=== PATIENT | female | born 1990 | race Caucasian/White ===

== ENCOUNTER 2019-06-10 05:35 | Inpatient (IN) ==
[2019-06-10] MEDS ORDERED: ONDANSETRON 4 MG/2 ML VIAL IV PRN ×2 (05:46→08:33)
[2019-06-10] MEDS ORDERED: CITRIC ACID/SODIUM CITRATE 30 ML UDCUP PO ONE (05:47)
[2019-06-10] MEDS ORDERED: FAMOTIDINE 20 MG/2 ML VIAL IV ONE (05:47)
[2019-06-10] MEDS ORDERED: ceFAZolin 3,000 MG in SYRINGE 1 EACH IV ONE (05:57)
[2019-06-10] MEDS ORDERED: LACTATED RINGERS 1,000 ML IV SCH (06:00)
[2019-06-10] MEDS ORDERED: LACTATED RINGERS 1,000 ML IV PRN (06:00)
[2019-06-10 06:04] LABS: Basophils % 0.3 % (0.0-0.8); Eosinophils # 0.2 10*3/uL (0.0-0.87); Hematocrit 42.5 VOL% (35.7-47.0); Hemoglobin 13.5 GM/DL (12.0-16.0); Immature Granulocytes % 0.3 %; Immature Granulocytes Absolute 0.04 #; Lymphocytes # 2.3 10*3/uL (1.4-4.0); Mean Corpuscular HGB Conc 31.8 GM/DL (32-36); Mean Corpuscular Volume 88.5 FL (87-102); Mean Platelet Volume 9.3 FL (9.6-12.0); Monocytes % 5.8 % (1.7-12.7); Neutrophils % 72.6 % (38.7-73.9); Platelet Count 320 T/CUMM (130-400); Red Cell Distribution Width 13.3 % (9.3-17.3); White Blood Count 12.2 T/CUMM (4-12)
[2019-06-10 06:23] LABS: Alanine Aminotransferase 22 U/L (13-56); Albumin 2.5 G/DL (3.4-5.0); Alkaline Phosphatase 108 U/L (45-117); Aspartate Amino Transferase 14 U/L (0-37); Bilirubin,Total < 0.39 MG/DL (0.2-1.0); Blood Urea Nitrogen 10 MG/DL (7-18); Calcium 8.9 MG/DL (8.5-10.1); Estimated Glom Filtration Rate 185 ML/MIN; Glucose 112 MG/DL (74-106); Osmolality,Calculated 269.1 MOS/KG (273-304); Total Protein 7.2 G/DL (6.4-8.3)
[2019-06-10 06:39] LABS: Bilirubin,Direct 0.1 MG/DL (0.0-0.20)
[2019-06-10 06:40] LABS: INR 0.9; PT Patient Result 9.4 SECS (9.6-12.2); Partial Thromboplastin Time 24.7 SECS (20.8-36.0)
[2019-06-10] MEDS ORDERED: TRANEXAMIC ACID 1,000 MG/10 ML VIAL ONE (07:10)
[2019-06-10] MEDS ORDERED: OXYTOCIN/LR 20 UNIT/1,000 ML BAG IV ONE ×3 (07:10→08:33)
[2019-06-10] MEDS ORDERED: miSOPROStoL 200 MCG TABLET ONE (07:10)
[2019-06-10] MEDS ORDERED: CARBOPROST TROMETHAMINE 250 MCG/ML AMP IM ONE (07:11)
[2019-06-10] MEDS ORDERED: METHYLERGONOVINE 0.2 MG/1 ML AMP ONE (07:11)
[2019-06-10 08:30] LABS: Apearance,Urine CLEAR (Clear); Bacteria,Urine Occasional /HPF (Few); Bilirubin,Urine Negative (Negative); Blood, Urine Negative (Negative); Glucose,Urine (UA) Negative (Negative); Ketones,Urine Negative (Negative); Mucus,Urine Occasional /LPF (Occasional); Nitrite,Urine Negative (Negative); Protein,Urine Negative; RBC,Urine <1 /HPF (0-4); Squamous Epithelial Cell,Urine Occasional /HPF (0-10); Urine Color Yellow (Yellow); Urine Specific Gravity 1.015 (1.001-1.035); Urine Urobilinogen < 2.0 EU/DL (0.2-1.0); WBC,Urine 1 /HPF (0-6)
[2019-06-10] MEDS ORDERED: oxyCODONE/ACETAMINOPHEN 5-325 MG TABLET PO PRN (08:33)
[2019-06-10] MEDS ORDERED: BENZOCAINE 20%/MENTHOL 0.5% SPRAY 56 GM CAN TOP PRN (08:33)
[2019-06-10] MEDS ORDERED: ACETAMINOPHEN 325 MG TABLET PO PRN (08:33)
[2019-06-10] MEDS ORDERED: RHO(D) IMMUNE GLOBULIN 300 MCG SYRINGE IM ONE (08:33)
[2019-06-10] MEDS ORDERED: LANOLIN 50% CREAM 0.3 OZ TUBE TOP PRN (08:33)
[2019-06-10] MEDS ORDERED: MEASLES/MUMPS/RUBELLA VACCINE 0.5 ML VIAL SUBCUT ONE (08:33)
[2019-06-10] MEDS ORDERED: BISACODYL 10 MG SUPP RECTAL PRN (08:33)
[2019-06-10] MEDS ORDERED: DIPH/TET/ACEL PERT BOOSTER VACCINE 0.5 ML VIAL IM ONE (08:33)
[2019-06-10] MEDS ORDERED: HYDROCORTISONE 2.5% RECTAL CREAM 30 GM TUBE TOP PRN (08:33)
[2019-06-10] MEDS ORDERED: WITCH HAZEL PADS 100/JAR TOP PRN (08:33)
[2019-06-10] MEDS ORDERED: BUPIVACAINE SPINAL 0.75% 2 ML AMP SPINAL ONE (08:48)
[2019-06-10] MEDS ORDERED: MORPHINE 10 MG/10 ML VIAL ONE (08:49)
[2019-06-10] MEDS ORDERED: ONDANSETRON 4 MG/2 ML VIAL ONE (08:49)
[2019-06-10] MEDS ORDERED: MIDAZOLAM 2 MG/2 ML VIAL ONE (08:49)
[2019-06-10] MEDS ORDERED: PHENYLEPHRINE 1 MG/10 ML SYRINGE IV ONE (08:49)
[2019-06-10] MEDS ORDERED: HYDROmorphone 2 MG/1 ML VIAL IV PRN (09:31)
[2019-06-10] MEDS ORDERED: GLUCAGON 1 MG VIAL IM PRN (10:49)
[2019-06-10] MEDS ORDERED: DEXTROSE 50% 25 GM/50 ML VIAL IV PRN (10:49)
[2019-06-10] MEDS ORDERED: INSULIN REGULAR 100 UNIT/ML SUBCUT SCH (12:00)
[2019-06-10] MEDS ORDERED: KETOROLAC 30 MG/1 ML VIAL IV PRN (14:09)
[2019-06-10] MEDS: ceFAZolin 2,000 MG in PREMIX 1 EACH IV SCH (15:59)
[2019-06-10] MEDS: DOCUSATE SODIUM 100 MG CAPSULE PO SCH (20:09)
[2019-06-10] MEDS: IBUPROFEN 800 MG TABLET PO PRN (20:10)
[2019-06-10] MEDS: oxyCODONE/ACETAMINOPHEN 5-325 MG TABLET PO PRN (22:10)
[2019-06-11] MEDS: ceFAZolin 2,000 MG in PREMIX 1 EACH IV SCH (00:11)
[2019-06-11] MEDS: oxyCODONE/ACETAMINOPHEN 5-325 MG TABLET PO PRN ×3 (04:33→23:32)
[2019-06-11] MEDS: IBUPROFEN 800 MG TABLET PO PRN ×3 (04:33→20:35)
[2019-06-11 05:48] LABS: Basophils % 0.2 % (0.0-0.8); Eosinophils # 0.2 10*3/uL (0.0-0.87); Eosinophils % 1.9 % (0.00-10.9); Hematocrit 34.2 VOL% (35.7-47.0); Hemoglobin 11.1 GM/DL (12.0-16.0); Immature Granulocytes % 0.3 %; Immature Granulocytes Absolute 0.03 #; Lymphocytes # 1.9 10*3/uL (1.4-4.0); Lymphocytes % 17.3 % (21.3-54.2); Mean Corpuscular HGB Conc 32.5 GM/DL (32-36); Mean Corpuscular Volume 88.6 FL (87-102); Mean Platelet Volume 9.5 FL (9.6-12.0); Monocytes % 7.8 % (1.7-12.7); Neutrophils % 72.5 % (38.7-73.9); Platelet Count 238 T/CUMM (130-400); Red Blood Count 3.86 MC/CUMM (3.8-5.5); Red Cell Distribution Width 13.7 % (9.3-17.3); White Blood Count 10.7 T/CUMM (4-12)
[2019-06-11] MEDS: DOCUSATE SODIUM 100 MG CAPSULE PO SCH ×2 (10:05→20:35)
[2019-06-11] MEDS: LEVOTHYROXINE 100 MCG TABLET PO SCH (10:24)
[2019-06-11] MEDS ORDERED: MAGNESIUM HYDROXIDE SUSP 30 ML UDCUP PO PRN (19:31)
[2019-06-12] MEDS: IBUPROFEN 800 MG TABLET PO PRN (03:33)
[2019-06-12] MEDS: oxyCODONE/ACETAMINOPHEN 5-325 MG TABLET PO PRN (07:00)
[2019-06-12 07:26] VITALS: BP 128/81
[2019-06-12] MEDS: DOCUSATE SODIUM 100 MG CAPSULE PO SCH (08:46)
[2019-06-12] MEDS: LEVOTHYROXINE 100 MCG TABLET PO SCH (08:47)
== END 2019-06-12 12:05 | disposition home or self-care (01) | DRG 788 ==
LOC: N.LD 05:35 → N.OB 11:53
PROVIDERS: ADMIT Specialist; ATTEND Specialist
PROC: LDCSECT (ICD-10-PCS; 2019-06-10 07:45)

== ENCOUNTER 2020-07-21 05:53 | Inpatient (IN) ==
[2020-07-21] MEDS ORDERED: FAMOTIDINE 20 MG/2 ML VIAL IV ONE (06:00)
[2020-07-21] MEDS ORDERED: CITRIC ACID/SODIUM CITRATE 30 ML UDCUP PO ONE (06:00)
[2020-07-21] MEDS: LACTATED RINGERS 1,000 ML IV SCH ×2 (06:28→17:45)
[2020-07-21 06:42] LABS: Basophils % 0.3 % (0.0-0.8); Eosinophils # 0.1 10*3/uL (0.0-0.87); Eosinophils % 0.9 % (0.00-10.9); Hematocrit 42.5 VOL% (35.7-47.0); Hemoglobin 13.8 GM/DL (12.0-16.0); Immature Granulocytes % 0.6 %; Immature Granulocytes Absolute 0.07 #; Lymphocytes # 1.9 10*3/uL (1.4-4.0); Lymphocytes % 16.9 % (21.3-54.2); Mean Corpuscular HGB Conc 32.5 GM/DL (32-36); Mean Corpuscular Volume 86.7 FL (87-102); Monocytes % 6.3 % (1.7-12.7); Platelet Count 343 T/CUMM (130-400); Red Cell Distribution Width 13.5 % (9.3-17.3); White Blood Count 11.4 T/CUMM (4-12)
[2020-07-21 06:53] LABS: INR 0.9; PT Patient Result 10.6 SECS (9.8-11.9); Partial Thromboplastin Time 25.3 SECS (23.9-33.8)
[2020-07-21] MEDS ORDERED: BUPIVACAINE SPINAL 0.75% 2 ML AMP SPINAL ONE (06:59)
[2020-07-21] MEDS ORDERED: ONDANSETRON 4 MG/2 ML VIAL ONE (06:59)
[2020-07-21] MEDS ORDERED: PHENYLEPHRINE 1 MG/10 ML SYRINGE IV ONE (06:59)
[2020-07-21] MEDS ORDERED: OXYTOCIN/LR 20 UNIT/1,000 ML BAG IV ONE ×2 (07:09→10:40)
[2020-07-21] MEDS ORDERED: miSOPROStoL 200 MCG TABLET ONE (07:09)
[2020-07-21] MEDS ORDERED: TRANEXAMIC ACID 1,000 MG/10 ML VIAL ONE (07:09)
[2020-07-21] MEDS ORDERED: CARBOPROST TROMETHAMINE 250 MCG/ML AMP IM ONE (07:10)
[2020-07-21 07:12] LABS: Alanine Aminotransferase 15 U/L (13-56); Albumin 2.5 G/DL (3.4-5.0); Alkaline Phosphatase 129 U/L (45-117); Aspartate Amino Transferase 18 U/L (0-37); Bilirubin,Total < 0.39 MG/DL (0.2-1.0); Blood Urea Nitrogen 11 MG/DL (7-18); Carbon Dioxide 23 MMOL/L (21-32); Estimated Glom Filtration Rate 195 ML/MIN; Glucose 87 MG/DL (74-106); Potassium 3.8 MMOL/L (3.5-5.1); Sodium 136 MMOL/L (136-145); Total Protein 7.1 G/DL (6.4-8.2)
[2020-07-21 07:27] LABS: Bilirubin,Direct < 0.050 MG/DL (0.0-0.20); Uric Acid 4.6 MG/DL (2.6-6.0)
[2020-07-21 10:00] LABS: Cord Arterial Blood HCO3 23.9 MMOL/L
[2020-07-21 10:03] LABS: Cord Venous Blood HCO3 24.9 MMOL/L; Cord Venous Blood PCO2 43.1 MMHG; Cord Venous Blood PO2 42.6
[2020-07-21 10:06] LABS: Bilirubin,Urine Negative (Negative); Blood, Urine Negative (Negative); Glucose,Urine (UA) Negative (Negative); Ketones,Urine Negative (Negative); Mucus,Urine Occasional /LPF (Occasional); Nitrite,Urine Negative (Negative); Protein,Urine Negative; RBC,Urine 1 /HPF (0-4); Squamous Epithelial Cell,Urine Occasional /HPF (0-10); Urine Appearance CLEAR (Clear); Urine Color Yellow (Yellow); Urine Specific Gravity 1.024 (1.001-1.035)
[2020-07-21] MEDS ORDERED: propofoL 200 MG/20 ML VIAL IV ONE ×3 (10:07)
[2020-07-21] MEDS ORDERED: KETOROLAC 30 MG/1 ML VIAL ONE (10:36)
[2020-07-21] MEDS ORDERED: BENZOCAINE 20%/MENTHOL 0.5% SPRAY 56 GM CAN TOP PRN (10:40)
[2020-07-21] MEDS ORDERED: ONDANSETRON 4 MG/2 ML VIAL IV PRN (10:40)
[2020-07-21] MEDS ORDERED: LANOLIN 50% CREAM 0.3 OZ TUBE TOP PRN (10:40)
[2020-07-21] MEDS ORDERED: RHO(D) IMMUNE GLOBULIN 300 MCG SYRINGE IM ONE (10:40)
[2020-07-21] MEDS ORDERED: ACETAMINOPHEN 325 MG TABLET PO PRN (10:40)
[2020-07-21] MEDS ORDERED: DIPH/TET/ACEL PERT BOOSTER VACCINE 0.5 ML VIAL IM ONE (10:40)
[2020-07-21] MEDS ORDERED: WITCH HAZEL PADS 100/JAR TOP PRN (10:40)
[2020-07-21] MEDS ORDERED: oxyCODONE/ACETAMINOPHEN 5-325 MG TABLET PO PRN (10:40)
[2020-07-21] MEDS ORDERED: HYDROCORTISONE 2.5% RECTAL CREAM 30 GM TUBE TOP PRN (10:40)
[2020-07-21] MEDS ORDERED: BISACODYL 10 MG SUPP RECTAL PRN (10:40)
[2020-07-21] MEDS ORDERED: MEASLES/MUMPS/RUBELLA VACCINE 0.5 ML VIAL SUBCUT ONE (10:40)
[2020-07-21] MEDS ORDERED: ACETAMINOPHEN 500 MG TABLET PO PRN (11:44)
[2020-07-21] MEDS ORDERED: DEXTROSE 50% 25 GM/50 ML VIAL IV PRN (13:42)
[2020-07-21] MEDS ORDERED: GLUCAGON 1 MG VIAL IM PRN (13:42)
[2020-07-21] MEDS: IBUPROFEN 800 MG TABLET PO PRN ×2 (17:45→23:23)
[2020-07-21] MEDS: ceFAZolin 2,000 MG in PREMIX 1 EACH IV SCH (17:45)
[2020-07-21] MEDS: oxyCODONE/ACETAMINOPHEN 5-325 MG TABLET PO PRN ×2 (17:45→23:23)
[2020-07-21] MEDS: LABETALOL 200 MG TABLET PO SCH (20:25)
[2020-07-21] MEDS: DOCUSATE SODIUM 100 MG CAPSULE PO SCH (20:51)
[2020-07-22] MEDS: ceFAZolin 2,000 MG in PREMIX 1 EACH IV SCH (01:48)
[2020-07-22] MEDS ORDERED: SIMETHICONE CHEW 80 MG TABLET PO PRN (05:07)
[2020-07-22] MEDS ORDERED: MAGNESIUM HYDROXIDE SUSP 30 ML UDCUP PO PRN (05:07)
[2020-07-22] MEDS: LEVOTHYROXINE 100 MCG TABLET PO SCH (06:06)
[2020-07-22] MEDS: oxyCODONE/ACETAMINOPHEN 5-325 MG TABLET PO PRN ×3 (06:07→20:47)
[2020-07-22] MEDS: IBUPROFEN 800 MG TABLET PO PRN ×3 (06:07→20:47)
[2020-07-22 06:24] LABS: Basophils % 0.3 % (0.0-0.8); Eosinophils # 0.2 10*3/uL (0.0-0.87); Eosinophils % 1.3 % (0.00-10.9); Hematocrit 38.1 VOL% (35.7-47.0); Hemoglobin 12.5 GM/DL (12.0-16.0); Immature Granulocytes % 0.4 %; Immature Granulocytes Absolute 0.05 #; Lymphocytes # 1.3 10*3/uL (1.4-4.0); Lymphocytes % 11.3 % (21.3-54.2); Mean Corpuscular HGB Conc 32.8 GM/DL (32-36); Mean Corpuscular Volume 86.2 FL (87-102); Monocytes % 6.7 % (1.7-12.7); Platelet Count 286 T/CUMM (130-400); Red Blood Count 4.42 MC/CUMM (3.8-5.5); Red Cell Distribution Width 13.8 % (9.3-17.3); White Blood Count 11.9 T/CUMM (4-12)
[2020-07-22] MEDS: LABETALOL 200 MG TABLET PO SCH ×2 (08:01→23:47)
[2020-07-22] MEDS: DOCUSATE SODIUM 100 MG CAPSULE PO SCH ×2 (08:08→20:47)
[2020-07-23] MEDS: IBUPROFEN 800 MG TABLET PO PRN ×2 (01:57→08:43)
[2020-07-23] MEDS: oxyCODONE/ACETAMINOPHEN 5-325 MG TABLET PO PRN ×2 (01:57→08:43)
[2020-07-23] MEDS: LEVOTHYROXINE 100 MCG TABLET PO SCH (06:03)
[2020-07-23 08:17] VITALS: BP 142/76
[2020-07-23] MEDS: DOCUSATE SODIUM 100 MG CAPSULE PO SCH (08:43)
[2020-07-23] MEDS: LABETALOL 200 MG TABLET PO SCH (08:44)
== END 2020-07-23 13:15 | disposition home or self-care (01) | DRG 788 ==
LOC: N.LD 05:53 → N.OB 13:30
PROVIDERS: ADMIT Specialist; ATTEND Specialist
PROC: LDCSECT (ICD-10-PCS; 2020-07-21 09:35)